=== PATIENT | male | born 1935 | race Caucasian/White ===

== ENCOUNTER 2017-02-08 11:04 | Observation (INO) ==
--- NOTE | 2017-02-08 11:20 | Emergency Department Note ---
Disposition Clinical Impression: Urinary tract infection, Drug resistance Disposition: Admitted As Inpatient Condition: Fair Referrals: Ralph Obrien DO [Primary Care Provider] - Forms: ED Satisfaction Letter Time of Disposition: 11:35 Male Urogenital HPI - General Chief complaint: ED Urogenital-Male Stated complaint: UTI Time Seen by Provider: 02/08/17 11:11 Source: patient Mode of arrival: ambulatory Limitations: no limitations Nursing Notes Reviewed: Yes Vital Signs Reviewed: Yes - History of Present Illness HPI Narrative: -year-old male been seen by the family physician who did a urine and culture and apparently it came back stating that he needs IV antibiotics because he is resistant to multiple ab's patient was placed on oral antibiotics which has showed resistance patient sent to the ER for IV antibiotics initially sent by the home health nurse thinking he only needs to receive 1 dose and he can go home but based on the findings he will need to have at least 2-3 day course of antibiotics Pt Subjective Complaint: other (contact from dr office resistent uti infection needs iv ab's) Onset (ago): day(s) Duration: constant Severity: mild Severity scale (1-10): 2 Quality: aching Improves with: none Worsens with: urination Reports: dysuria. Denies: discharge, swelling, mass, rash, urinary retention, hematuria, fever, nausea/vomiting, incontinence - Related Data Home Medications Medication Instructions Recorded Confirmed Fluticasone/Salmeterol [Advair 1 each IH DAILY 09/01/15 02/08/17 250-50 Diskus] Levothyroxine 50 mcg PO DAILY 09/01/15 02/08/17 Lisinopril 10 mg PO DAILY 09/01/15 02/08/17 Metoprolol 25 mg PO BID 09/01/15 02/08/17 Ventolin Hfa 2 puff IH Q4H PRN 09/01/15 02/08/17 Docusate [Colace] 100 mg PO BID 07/07/16 02/08/17 Donepezil HCl [Aricept] 10 mg PO HS 07/07/16 02/08/17 Ipratropium/Albuterol Neb [Duoneb] 3 ml IH Q6HR 07/07/16 02/08/17 Rosuvastatin [Crestor] 40 mg PO HS 07/07/16 02/08/17 Previous Rx's Medication Instructions Recorded Diphenoxylate/Atropine [Lomotil 2 each PO QID PRN #12 tablet 11/02/16 2.5 mg/0.025 mg] Allergies Allergy/AdvReac Type Severity Reaction Status Date / Time Penicillins [PCN] Allergy Rash Verified 11/02/16 02:57 All systems ED: reviewed and negative except as stated. Review of Systems: As Per HPI Constitutional: Reports: weakness. Denies: fever, chills Eyes: Denies: eye pain, eye discharge ENT ED: Denies: ear pain, throat pain Cardiovascular: Denies: chest pain, palpitations Respiratory: Denies: cough, dyspnea, wheezes Gastrointestinal: Denies: abdominal pain, nausea, vomiting Genitourinary: Reports: urgency, dysuria, frequency Musculoskeletal: Denies: back pain, neck pain Integumentary: Denies: rash, abrasion Neurological: Denies: headache, weakness Psychiatric: Denies: anxiety Endocrine: Denies: fatigue Hematological/Lymphatic: Denies: easy bleeding Allergic/Immunologic: Denies: facial swelling Past Medical History - Past Medical History Attestation: Yes The following information was validated with the patient. Source: patient, old records reviewed, nursing notes reviewed Medical history: Reports: asthma, COPD, diabetes Psychiatric history: Reports: no psych history - Social History Smoking Status: Current every day smoker Smokeless Tobacco Status: No Alcohol use: Reports: none Drug use: Reports: none Physical Exam - General Limitations: no limitations General appearance: alert, in no apparent distress, anxious, other (poorly kept) - Head Head exam: atraumatic, normocephalic, normal inspection - Eye Eye exam: Present: normal appearance, PERRL, EOMI - ENT ENT exam: normal exam, normal oropharynx, mucous membranes moist, normal external ear exam - Neck Neck exam: Present: normal inspection, full ROM, trachea midline - Chest Chest inspection: Present: normal inspection, symmetric chest wall rise - Respiratory Respiratory exam: Present: normal lung sounds bilaterally - Cardiovascular Cardiovascular exam: Present: regular rate - Abdominal Exam Abdominal Exam: Present: soft, Non-Tender, normal bowel sounds. Absent: mass, pulsatile mass - Extremities Exam Extremities exam: Present: normal inspection, full ROM, normal capillary refill. Absent: tenderness, pedal edema, joint swelling, calf tenderness - Back Exam Back exam: Present: normal inspection, full ROM - Neurological Exam Neurological exam: Present: alert, oriented X3, CN II-XII intact - Psychiatric Psychiatric exam: Present: normal affect, normal mood, other (Cantankerous) - Skin Skin exam: Present: warm, dry, intact, normal color Course Course Narrative: Seen and examined IV started here in the emergency room admitted to [facility] services of Dr. Luna started on Gentamycin and pip/simran Vital Signs Temperature 98.5 F 02/08/17 11:10 Pulse Rate 60 02/08/17 11:10 Respiratory Rate 18 02/08/17 11:10 Blood Pressure 128/70 02/08/17 11:10 O2 Sat by Pulse Oximetry 97 02/08/17 11:10 Temperature 98.5 F 02/08/17 11:10 Pulse Rate 60 02/08/17 11:10 Respiratory Rate 18 02/08/17 11:10 Blood Pressure 128/70 02/08/17 11:10 O2 Sat by Pulse Oximetry 97 02/08/17 11:10 Oxygen Delivery Oxygen Delivery Room Air Urogenital-Male - Differential Diagnosis Likely: urinary tract infection - Medical Records Medical records reviewed: Yes I reviewed the patient's medical records. - Lab Data Lab results reviewed: Yes I reviewed the patient's lab results. Critical Care Time Critical Care Time: No
[2017-02-08] MEDS ORDERED: GENTAMICIN IVPB ONE (11:25)
[2017-02-08] MEDS ORDERED: Gentamicin 280 MG in 0.9 % Sodium Chloride 100 ML IVPB ONE (11:28)
[2017-02-08] MEDS ORDERED: 0.9 % Sodium Chloride 1,000 ML IVC SCH ×2 (11:30→12:20)
[2017-02-08 11:31] LABS: Basophils # 0.1 K/mcL (0.0-0.2); Basophils % 0.7 %; Eosinophils # 0.6 K/mcL (0.0-0.6); Eosinophils % 5.7 %; Hematocrit 39.7 % (37.5-50.1); Hemoglobin 12.6 g/dL (12.9-16.9); Immature Granulocytes % 3.1 % (0-4); Lymphocytes # 1.6 K/mcL (0.6-4.6); Mean Corpuscular HGB Conc 31.7 g/dL (31.6-35.5); Mean Corpuscular Hemoglobin 29.8 pg (28.0-33.3); Mean Corpuscular Volume 93.9 fL (83.0-100.0); Mean Platelet Volume 8.7 fL (9.4-12.4); Monocytes # 0.4 K/mcL (0.0-1.3); Monocytes % 3.6 %; Neutrophils # 7.5 K/mcL (1.6-8.9); Platelet Count 308 K/mcL (140-400); Red Blood Count 4.23 M/mcL (4.19-5.50); Red Cell Distribution Width 15.7 % (11.5-14.5); Segmented Neutrophils % 71.9 %
[2017-02-08 11:36] LABS: INR 1.1; Prothrombin Time 11.9 Seconds (9.4-12.1)
[2017-02-08 11:46] LABS: BUN/Creatinine Ratio 14 (6-26); Blood Urea Nitrogen 13 mg/dL (8-26); Calcium 8.9 mg/dL (8.6-10.8); Carbon Dioxide 28 mEq/L (19-29); Chloride 107 mEq/L (98-109); Glucose 140 mg/dL (70-99); Osmolality,Calculated 298 (280-300); Potassium 4.6 mEq/L (3.5-4.5); Sodium 143 mEq/L (136-145); eGFR For African Americans > 60 (> 60); eGFR For Non-African Americans > 60 (> 60)
[2017-02-08] MEDS ORDERED: Naloxone 0.4 MG/ML INJ IVP PRN (12:20)
[2017-02-08] MEDS ORDERED: Diphenoxylate/Atropine 1 TAB TABLET PO PRN (12:20)
[2017-02-08] MEDS ORDERED: Ipratropium/Albuterol Neb 3 ML IH SCH ×2 (12:20→16:00)
[2017-02-08] MEDS ORDERED: Piperacillin/Tazobactam 3.375 GM in D5% in Water (Mini-Bag+) 100 ML IVPB SCH (13:00)
[2017-02-08 16:19] LABS: Bilirubin,Urine Negative (Negative); Blood,Urine Negative (Negative); Clarity,Urine Slightly Cloudy (Clear); Color,Urine Yellow (Yellow); Glucose,Urine (UA) Normal (Normal); Ketones,Urine Negative (Negative); Leukocyte Esterase,Urine Trace (Negative); Nitrite,Urine Positive (Negative); Protein,Urine Trace mg/dL (Neg-Trace); Specific Gravity,Urine 1.025 (1.010-1.025); Urobilinogen,Urine Normal (Normal)
[2017-02-08 16:31] LABS: Hyaline Casts,Urine Few per lpf (None-Few); Renal Epithelial Cells,Urine Moderate per hpf (None-Few); Squamous Epithelial Cell,Urine Few per lpf (None-Few); Transitional Epi Cells,Urine Moderate per hpf (None-Few)
[2017-02-08 16:32] LABS: Bacteria,Urine Moderate per hpf (None-Few)
--- NOTE | 2017-02-08 17:10 | Internal Med History&Physical ---
Date of Encounter: 02/08/17 Time of Encounter: 16:40 Assessment and Plan (1) Urinary tract infection Current visit: Yes Status: Acute He was given gentamicin in emergency room. Urinalysis is been obtained by straight catheter showing trace leukocyte esterase and 5-15 WBCs with moderate bacteria. Continue gentamicin for now and add lactobacillus. Qualifiers: Urinary tract infection type: site unspecified Hematuria presence: without hematuria Qualified Code(s): N39.0 - Urinary tract infection, site not specified (2) Anemia Current visit: Yes Status: Acute Will order anemia testing in a.m. Qualifiers: Anemia type: unspecified type Qualified Code(s): D64.9 - Anemia, unspecified Internal Medicine - H&P: HPI Chief complaint: UTI Admitted From: Home Plans for Post Hospital Care: Home History of present illness: Mr. Hernandez is a 81 year old male who came to the emergency room after his PCP office notified home health services he should come to emergency room for possible admission based on urine culture results of 01/28/2017. The culture showed Enterobacter with sensitivity only to gentamicin and Zosyn. He was given a dose of gentamicin in the emergency room and admitted to [facility] floor for ongoing care needs. He denies urinary symptoms such as pain burning or frequency. He denies fevers or chills. There is no known disorder of kidney or bladder otherwise. Past Med Surg Social Fam HX - Past Medical History Medical history: asthma, COPD, diabetes, hyperlipidemia, hypertension, thyroid disease Psychiatric history: no psych history - Past Surgical History Surgical History: prostatectomy - Social History Smoking Status: Current every day smoker Smokeless Tobacco Status: No Alcohol use: none Drug use: none Internal Medicine - H&P: Meds Fluticasone/Salmeterol [Advair 250-50 Diskus] 1 each IH DAILY 09/01/15 [History] Levothyroxine 50 mcg PO DAILY 09/01/15 [History] Lisinopril 10 mg PO DAILY 09/01/15 [History] Metoprolol 25 mg PO BID 09/01/15 [History] Ventolin Hfa 2 puff IH Q4H PRN 09/01/15 [History] Docusate [Colace] 100 mg PO BID 07/07/16 [History] Donepezil HCl [Aricept] 10 mg PO HS 07/07/16 [History] Ipratropium/Albuterol Neb [Duoneb] 3 ml IH Q6HR 07/07/16 [History] Rosuvastatin [Crestor] 40 mg PO HS 07/07/16 [History] Diphenoxylate/Atropine [Lomotil 2.5 mg/0.025 mg] 2 each PO QID PRN #12 tablet [Rx] 3 Allergy/AdvReac Type Severity Reaction Status Date / Time Penicillins [PCN] Allergy Rash Verified 11/02/16 02:57 All Systems PM: A 10-system review of systems was performed and is negative for pertinent findings except as documented above in the HPI. Review of systems: Gen.: His weight has been stable at approximately 64 kg since the August [address] [facility] hospitalization. Cardiovascular: He claims a history of hypertension but denies MA heart failure angina DVT or pulmonary embolus. Respiratory: He has smoked since age 7 never up to 1 pack per day. He does not use home oxygen. GI: He states he has had abdominal hernia repair. He denies disorders of his liver gallbladder or exocrine pancreas : As per history of present illness Neurologic: He denies large distribution strokes or seizures. Endocrine: He was diagnosed with DM 2 approximately 2011. He has hypothyroidism and hyperlipidemia Hematology/oncology: He denies blood disorders cancers or anemia. Psychiatric: He denies anxiety depression or other mental health issues. Musculoskeletal: He denies arthritis gout or other bone joint or muscle disorders. - Constitutional Vitals: Temp Pulse Resp BP Pulse Ox 97.4 F L 62 14 90/54 95 02/08/17 15:09 02/08/17 15:09 02/08/17 16:03 02/08/17 15:09 02/08/17 16:03 Exam: Gen.: He is a well-developed well-nourished male sitting in a chair at bedside who appears in no acute distress. HEENT: Head is atraumatic and normocephalic. Eyes: EOMI. There is no scleral icterus. Mouth: Mucosa is moist. Neck: Supple and nontender. There is no thyromegaly or adenopathy noted. Heart: Regular without murmurs gallops or ectopics Lungs: No wheezes or crackles are heard. Abdomen: Soft and nontender. No masses or guarding are noted. Exam is limited because he is in the seated position. Extremities: There is no cyanosis edema or clubbing noted. Dorsalis pedis and posterior tibial pulses are trace palpable bilaterally. Neurologic: Mental status: He is talkative and a fair to good historian. Cranial nerves: Smile is symmetric. Forehead wrinkles bilaterally. Tongue protrudes midline. EOMI. Motor: There is no pronator drift. Cerebellar: Finger to nose is intact bilaterally. Skin: Warm and dry Internal Med - H&P Results - Labs CBC & Chem 7: 02/08/17 11:21 02/08/17 11:21 Labs: Urine 02/08/17 Range/Units 16:03 Urine Color Yellow (Yellow) Urine Clarity Slightly Cloudy A (Clear) Urine pH 7.0 (5.0-8.0) pH Units Ur Specific Saxis 1.025 (1.010-1.025) Urine Protein Trace (Neg-Trace) mg/dL Urine Glucose (UA) Normal (Normal) mg/dL
[2017-02-08] MEDS ORDERED: Gentamicin 80 MG in 0.9 % Sodium Chloride 100 ML IVPB SCH (18:00)
[2017-02-08] MEDS: Nicotine 21 MG PATCH.TD24 TD SCH (20:12)
[2017-02-08] MEDS: Lactobacillus 1 EACH CAP.SPRINK PO SCH (20:14)
[2017-02-09 05:10] LABS: Basophils # 0.1 K/mcL (0.0-0.2); Basophils % 0.8 %; Eosinophils # 0.4 K/mcL (0.0-0.6); Eosinophils % 4.5 %; Hematocrit 37.3 % (37.5-50.1); Hemoglobin 12.1 g/dL (12.9-16.9); Immature Granulocytes % 3.3 % (0-4); Lymphocytes # 1.6 K/mcL (0.6-4.6); Lymphocytes % 16.6 %; Mean Corpuscular HGB Conc 32.4 g/dL (31.6-35.5); Mean Corpuscular Hemoglobin 30.1 pg (28.0-33.3); Mean Corpuscular Volume 92.8 fL (83.0-100.0); Mean Platelet Volume 8.9 fL (9.4-12.4); Monocytes # 0.5 K/mcL (0.0-1.3); Monocytes % 4.8 %; Neutrophils # 6.9 K/mcL (1.6-8.9); Platelet Count 287 K/mcL (140-400); Red Blood Count 4.02 M/mcL (4.19-5.50); Red Cell Distribution Width 15.9 % (11.5-14.5)
[2017-02-09 05:28] LABS: BUN/Creatinine Ratio 16 (6-26); Blood Urea Nitrogen 14 mg/dL (8-26); Calcium 8.8 mg/dL (8.6-10.8); Carbon Dioxide 26 mEq/L (19-29); Chloride 107 mEq/L (98-109); Glucose 133 mg/dL (70-99); Osmolality,Calculated 298 (280-300); Sodium 143 mEq/L (136-145); eGFR For African Americans > 60 (> 60); eGFR For Non-African Americans > 60 (> 60)
[2017-02-09] MEDS ORDERED: Levothyroxine 25 MCG TABLET PO SCH (06:30)
[2017-02-09 07:07] VITALS: BP 124/72
[2017-02-09] MEDS: Nicotine 21 MG PATCH.TD24 TD SCH (08:37)
[2017-02-09] MEDS: Lactobacillus 1 EACH CAP.SPRINK PO SCH (08:37)
[2017-02-09] MEDS ORDERED: Budesonide/Formoterol 80/4.5 MDI IH SCH (10:00)
[2017-02-09] MEDS ORDERED: Metoprolol XL (24 HR) Succ 25 MG TAB.ER.24H PO SCH (10:00)
[2017-02-09 10:55] LABS: Acinetobacter baumannii by PCR Not Detected (Not Detect); Candida albicans by PCR Not Detected (Not Detect); Candida glabrata by PCR Not Detected (Not Detect); Candida krusei by PCR Not Detected (Not Detect); Candida parapsilosis by PCR Not Detected (Not Detect); Candida tropicalis by PCR Not Detected (Not Detect); Enterococcus by PCR Not Detected (Not Detect); Escherichia coli by PCR Not Detected (Not Detect); Klebsiella oxytoca by PCR Not Detected (Not Detect); Klebsiella pneumoniae by PCR Not Detected (Not Detect); Pseudomonas aeruginosa by PCR Not Detected (Not Detect); Serratia marcescens by PCR Not Detected (Not Detect); Staphylococcus aureus by PCR Not Detected (Not Detect); Streptococcus agalactiae(B)PCR Not Detected (Not Detect); Streptococcus by PCR Not Detected (Not Detect); Streptococcus pneumoniae PCR Not Detected (Not Detect); Streptococcus pyogenes (A) PCR Not Detected (Not Detect); blaKPC Carbapenem-Resist Gene Not Detected (Not Detect); mecA Methicillin-Resist Gene Not Detected (Not Detect); vanA/B Vancomycin-Resist Genes Not Detected (Not Detect)
--- NOTE | 2017-02-09 11:19 | Discharge Summary ---
Date of Encounter: 02/09/17 Time of Encounter: 11:10 - Discharge Diagnosis (1) Urinary tract infection Priority: Primary Status: Acute Qualifiers: Urinary tract infection type: site unspecified Hematuria presence: without hematuria Qualified Code(s): N39.0 - Urinary tract infection, site not specified (2) Anemia Priority: Secondary Status: Acute Qualifiers: Anemia type: unspecified type Qualified Code(s): D64.9 - Anemia, unspecified - Discharge Medications Prescriptions: Lactobacillus [Culturelle] 1 each PO BID #10 cap.sprink Sulfamethoxazole/Trimeth DS [Bactrim DS] 1 each PO BID #10 tablet Home Medications: Fluticasone/Salmeterol [Advair 250-50 Diskus] 1 each IH DAILY 09/01/15 [History] Donepezil HCl [Aricept] 10 mg PO HS 07/07/16 [History] Ipratropium/Albuterol Neb [Duoneb] 3 ml IH Q6HR 07/07/16 [History] Rosuvastatin [Crestor] 40 mg PO HS 07/07/16 [History] Albuterol Sulfate [Ventolin Hfa] 18 gm IH Q4HR PRN 02/08/17 [History] Levothyroxine [Synthroid] 50 mcg PO 0630 02/08/17 [History] Lisinopril [Zestril] 10 mg PO DAILY 02/08/17 [History] Metoprolol [Lopressor] 25 mg PO BID 02/08/17 [History] Lactobacillus [Culturelle] 1 each PO BID #10 cap.sprink 02/09/17 [Rx] Sulfamethoxazole/Trimeth DS [Bactrim DS] 1 each PO BID #10 tablet 02/09/17 [Rx] Allergies/Adverse Reactions: 3 Allergy/AdvReac Type Severity Reaction Status Date / Time Penicillins [PCN] Allergy Rash Verified 11/02/16 02:57 Date of admission: 02/08/17 12:01 Primary care physician: Ralph Obrien DO Consults: 02/08/17 13:39 Consult to Nutrition [CONS] Routine Comment: Consulting Provider: NUTRITION Reason for Dietary Consult: MST Score Consult to Director Revenue [CONS] Routine Reason for SW Consult: D/C planning - services through [facility] pt receives guerda Whit Valdez crate icer - pt gets MOW - Patient Status Disposition: Home, Self-Care Condition: Fair Functional capacity at discharge: independent ambulation Overall status at discharge: patient is back to baseline - Discharge Instructions Follow Up With: Ralph Obrien DO [Primary Care Provider] - 1 week - Diet and Activity Activity: resume usual activities as tolerated Diet: advance to your usual diet Hospital course: Mr. Hernandez is a 81 year old male who came to the emergency room after his PCP office notified home health services he should come to emergency room for possible admission based on urine culture results of 01/28/2017. The culture showed Enterobacter with sensitivity only to gentamicin and Zosyn. He was given a dose of gentamicin in the emergency room and admitted to [facility] for ongoing care needs. Initial orders were written by the emergency room physician. I saw him on February 08 and performed the history and physical. He was started on IV gentamicin through emergency room. He remained afebrile and asymptomatic. Blood culture done in the emergency room showed preliminary growth of a staph species. Since the was clinically asymptomatic I suspect it may be staph epidermidis contaminant. He will be treated with Bactrim DS with lactobacillus for 5 additional days at discharge. Anemia testing was ordered with results pending at time of discharge. On February 09 he felt stable for discharge home which I felt was reasonable. He will follow with his PCP Dr. Ralph Obrien within one week. - Time Spent with Patient Total time spent providing and/or coordinating discharge services: - Constitutional Vitals: Temp Pulse Resp BP Pulse Ox 98.4 F 53 17 124/72 91 02/09/17 07:04 02/09/17 07:04 02/09/17 10:14 02/09/17 07:04 02/09/17 10:14
[2017-02-09] MEDS ORDERED: Aminoglycoside Consult 1 EACH MC ONE (12:00)
[2017-02-09] MEDS ORDERED: Gentamicin 280 MG in 0.9 % Sodium Chloride 100 ML IVPB SCH (12:00)
--- NOTE | 2017-02-09 12:16 | Physician Discharge Referral ---
Home Health/Hosp Referral Info Transfer to: Home Health Attending Provider: Jeremy Provider in Charge Post Discharge: PCP (Ralph Obrien DO) - Diagnosis (1) Urinary tract infection Priority: Primary Status: Acute (2) Anemia Priority: Secondary Status: Acute - Respiratory Orders Smoking Cessation: Smoking cessation has been advised. For more information, call the [place] Tobacco Quit Line at 1-848-JJFM-NOW. - Diet/Nutrition Diet/Nutrition Orders: Regular - Activity Activity Orders: Up ad christa - Services Needed Following services are medically necessary services: Nursing, Home Health Aide, Physical Therapy, Occupational Therapy - Transfer Medications Prescriptions: Lactobacillus [Culturelle] 1 each PO BID #10 cap.sprink Sulfamethoxazole/Trimeth DS [Bactrim DS] 1 each PO BID #10 tablet Home Medications: Fluticasone/Salmeterol [Advair 250-50 Diskus] 1 each IH DAILY 09/01/15 [History] Donepezil HCl [Aricept] 10 mg PO HS 07/07/16 [History] Ipratropium/Albuterol Neb [Duoneb] 3 ml IH Q6HR 07/07/16 [History] Rosuvastatin [Crestor] 40 mg PO HS 07/07/16 [History] Albuterol Sulfate [Ventolin Hfa] 18 gm IH Q4HR PRN 02/08/17 [History] Levothyroxine [Synthroid] 50 mcg PO 0630 02/08/17 [History] Lisinopril [Zestril] 10 mg PO DAILY 02/08/17 [History] Metoprolol [Lopressor] 25 mg PO BID 02/08/17 [History] Lactobacillus [Culturelle] 1 each PO BID #10 cap.sprink 02/09/17 [Rx] Sulfamethoxazole/Trimeth DS [Bactrim DS] 1 each PO BID #10 tablet 02/09/17 [Rx] Allergies/Adverse Reactions: 3 Allergy/AdvReac Type Severity Reaction Status Date / Time Penicillins [PCN] Allergy Rash Verified 11/02/16 02:57 Certification: Further, I certify that my clinical findings support that this patient is homebound (i.e. absences from home require considerable and taxing effort and are for medical reasons or advent services or infrequently or short duration when for other reasons) because: Homebound Reason: Altered mental status requiring supervision when leaving home Attestation: My signature below is to certify that this patient is under my care and that I, or nurse practitioner, or a physician's assistant sales director working with me, has a face-to -face encounter with this patient.
[2017-02-09 18:36] LABS: Ferritin 72 ng/ml (22-275)
[2017-02-09 18:41] LABS: Folate 10.9 ng/mL (7.0-31.4)
[2017-02-10 01:40] LABS: % Iron Saturation 23 % (20-55); Iron 81 mcg/dL (65-175); Transferrin 249 mg/dL (174-364)
== END 2017-02-09 13:52 | disposition home health service (06) ==
LOC: INPPIK 11:04 → EMEROOPIK 11:04 → INPPIK 12:28
PROVIDERS: ADMIT Internal Medicine; ATTEND Internal Medicine